=== PATIENT | female | born 1995 | race Caucasian/White ===

== ENCOUNTER 2016-11-04 15:07 | Emergency (ER) | payer MEDICAID ==
[~2016-11-04] VITALS: Wt 55.0 kg
[~2016-11-04 15:07] MED LIST: IBUP-1542 PO; PRENAT PO
[2016-11-04] MEDS ORDERED: FAMO-18 PO (16:10)
[2016-11-04] MEDS ORDERED: CETI10CA PO (16:11)
[2016-11-04] MEDS ORDERED: HC30CR25 TOP (16:11)
[2016-11-04] MEDS ORDERED: BEN25 PO (16:11)
[2016-11-04] MEDS ORDERED: PRED20TA PO (16:11)
--- NOTE | 2016-11-04 16:30 | ERD ---
ER Documentation Chief Complaint Date/Time DATE: 11/04/16 TIME: 16:27 Chief Complaint RASH SINCE YESTERDAY. NO SOB NO STRIDOR HPI Patient is a 21-year-old female who presents to the ED with rash that started 2 days ago. She states that the rash is on her face, abdomen, back, arms and legs. She denies fever or chills. She denies recent travel, change in hygiene products, change in soap, or traveling or change in foods. She states that the rash is itchy but not painful. She denies drainage. She has not taken any medication for her symptoms. She denies abdominal pain, nausea, vomiting, diarrhea. She denies shortness of breath, tongue swelling, lip swelling or difficulty breathing or swallowing or speaking. She denies chest pain or cough. No other complaints. ROS All systems reviewed and are negative except as per history of present illness. Medications Home Meds Active Scripts Hydrocortisone* Topical (Hydrocortisone* Topical) 2.5%-28.3 Gm Cream..g., 1 APPLIC TOP BID, #2 TUB Prov:FRANKLIN HANSON PA-C 11/04/16 Prednisone* (Prednisone*) 20 Mg Tab, 40 MG PO DAILY for 4 Days, TAB Prov:FRANKLIN HANSON-C 11/04/16 Cetirizine Hcl* (Zyrtec*) 10 Mg Capsule, 10 MG PO DAILY, #30 TAB.CHEW Prov:FRANKLIN HANSON PA-C 11/04/16 Diphenhydramine Hcl* (Benadryl*) 25 Mg Cap, 25 MG PO Q6, #30 CAP Prov:FRANKLIN HANSON PA-C 11/04/16 Famotidine* (Pepcid*) 20 Mg Tablet, 20 MG PO BID for 5 Days, TAB Prov:FRANKLIN HANSON-C 11/04/16 Ibuprofen* (Ibuprofen*) 600 Mg Tab, 600 MG PO Q6, #20 1 Refill Prov:JOSE IBRAHIM MD 05/04/15 Reported Medications Multivit/Min/Fol Ac/Iron/Pren* ( S*) 1 Tab Tab, 1 TAB PO DAILY, #1 TAB 05/01/15 Allergies Allergies: Coded Allergies: No Known Drug Allergies (Unverified Allergy, Unknown, 05/01/15) PMhx/Soc History of Surgery: No Anesthesia Reaction: No Hx Neurological Disorder: No Hx Respiratory Disorders: No Hx Cardiac Disorders: No Hx Psychiatric Problems: No Hx Miscellaneous Medical Probl: No Hx Alcohol Use: No Hx Substance Use: No Hx Tobacco Use: No Smoking Status: Never smoker FmHx Family History: No coronary disease, No diabetes, No other Physical Exam Vitals Vital Signs Date Time Temp Pulse Resp B/P Pulse Ox O2 Delivery O2 Flow Rate FiO2 11/04/16 16:01 98.8 81 20 131/80 98 Physical Exam GENERAL: Well-developed, well-nourished female. Appears in no acute distress. HEAD: Normocephalic, atraumatic. EYES: Pupils are equally reactive bilaterally. EOMs grossly intact. No conjunctival erythema. ENT: Moist mucous membranes. No uvula deviation. No kissing tonsils. No exudates. NECK: Supple. No lymphadenopathy or thyromegaly. No meningismus. negative kernig. negative brudinski. LUNG: Clear to auscultation bilaterally. No rhonchi, wheezing, rales or coarse breath sounds. Speaking in full sentences HEART: Regular rate and rhythm. No murmurs, rubs or gallops. ABDOMEN: No scars, ecchymosis noted. S NEUROLOGIC: Alert and oriented. Moving all four extremities. 5/5 strength in all extremities. Normal speech. Steady gait. SKIN: Normal color. Warm and dry. Erythematous wheals scattered on abdomen, back, face. No tongue swelling, lip swelling, no stridor. No wheezing. No drainage. No warmth. No streaking. Capillary refill < 2 seconds Procedures/MDM ER COURSE: I kept the patient and/or family informed of laboratory and diagnostic imaging results throughout the emergency room course. MEDICAL DECISION MAKING: This is a 21-year-old female who presents with rash 2 days. Vital signs were reviewed. Patient is afebrile. Patient is not hypoxic. Patient is not toxic or ill-appearing. Vitals are stable. Temperature 98.8, pulse 81 with an O2 sat of 98. Patient likely has rash of unknown etiology, likely urticaria. Low suspicion for necrotizing fasciitis, SJS, toxic epidermal necrolysis, Kawasaki, erythema multiforme, gangrene, scarlet fever, meningococcemia, sepsis, anaphylaxis, sepsis, deep space infection, or foreign body. DISCHARGE: At this time, patient is stable for discharge and outpatient management with no new complaints during the ER course. Patient was sent home with prednisone, Zyrtec for day, Benadryl at night, hydrocortisone cream for itching and Pepcid. A note for work was also given to patient.. Patient will be discharged home with instructions to recheck for new or worsening symptoms such as fever, nausea , weakness, LOC and to follow up with primary care in the next 1-2 days. Patient was advised to return to the ER for any new or worsening symptoms. Plan was discussed and patient and/or family understands and agrees. Home instructions were given. Departure Diagnosis: Primary Impression: Rash Condition: Stable Patient Instructions: Self-Care for Skin Rashes, When Your Child Has Hives ( Urticaria) or Angioedema Additional Instructions: Llame al doctor MAANA y demetrice pennie MIGUEL PARA DENTRO DE 1-2 JOINER.Dgale a la secretaria que nosotros le instruimos hacer esta miguel.Avise o llame si negro condicin se empeora antes de la miguel. Regresa aqui si peor o no mejor. FRANKLIN HANSON PA-C Nov 04, 2016 16:30
== END 2016-11-04 16:12 | disposition home or self-care (01) ==
LOC: E/R 15:07
DX: R21 Rash and other nonspecific skin eruption (principal)
CPT/HCPCS: 99283

== ENCOUNTER 2016-11-11 20:19 | Day surgery (SDC) | payer MEDICAID ==
[~2016-11-11] VITALS: Ht 162.6 cm; Wt 57.5 kg
[~2016-11-11 20:19] MED LIST changes: +BEN25 PO; +CETI10CA PO; +FAMO-18 PO; +HC30CR25 TOP; +PRED20TA PO
[2016-11-11 20:38] VITALS: Ht 162.6 cm; Wt 57.5 kg
--- NOTE | 2016-11-11 21:42 | ERD ---
ER Documentation Chief Complaint Date/Time DATE: 11/11/16 TIME: 21:40 Chief Complaint lower abd pain and n/v x 3 days HPI 21-year-old female presents here in emergency department for complaints of lower abdominal pain nausea and vomiting for 3 days. Patient describes the pain as sharp pain, 6/10 scale, accompanied with nausea vomiting, does not have any blood in the stool or black stool. Patient does not have any blood in the vomit. Patient does not have any fever or chills. Patient denies any diarrhea or constipation. Patient did not take any medications to help with symptoms ROS All systems reviewed and are negative except as per history of present illness. Medications Home Meds Active Scripts Hydrocortisone* Topical (Hydrocortisone* Topical) 2.5%-28.3 Gm Cream..g., 1 APPLIC TOP BID, #2 TUB Prov:FRANKLIN HANSON PA-C 11/04/16 Prednisone* (Prednisone*) 20 Mg Tab, 40 MG PO DAILY for 4 Days, TAB Prov:FRANKLIN HANSON PA-C 11/04/16 Cetirizine Hcl* (Zyrtec*) 10 Mg Capsule, 10 MG PO DAILY, #30 TAB.CHEW Prov:FRANKLIN HANSON PA-C 11/04/16 Diphenhydramine Hcl* (Benadryl*) 25 Mg Cap, 25 MG PO Q6, #30 CAP Prov:FRANKLIN HANSON PA-C 11/04/16 Famotidine* (Pepcid*) 20 Mg Tablet, 20 MG PO BID for 5 Days, TAB Prov:FRANKLIN HANSON PA-C 11/04/16 Ibuprofen* (Ibuprofen*) 600 Mg Tab, 600 MG PO Q6, #20 1 Refill Prov:JOSE IBRAHIM MD 05/04/15 Reported Medications Multivit/Min/Fol Ac/Iron/Pren* ( S*) 1 Tab Tab, 1 TAB PO DAILY, #1 TAB 05/01/15 Allergies Allergies: Coded Allergies: No Known Drug Allergies (Unverified Allergy, Unknown, 05/01/15) PMhx/Soc Medical and Surgical Hx: pt denies Medical Hx, pt denies Surgical Hx History of Surgery: No Anesthesia Reaction: No Hx Neurological Disorder: No Hx Respiratory Disorders: No Hx Cardiac Disorders: No Hx Psychiatric Problems: No Hx Miscellaneous Medical Probl: No Hx Alcohol Use: No Hx Substance Use: No Hx Tobacco Use: No Smoking Status: Never smoker FmHx Family History: No coronary disease, No diabetes, No other Physical Exam Vitals Vital Signs Date Time Temp Pulse Resp B/P Pulse Ox O2 Delivery O2 Flow Rate FiO2 11/12/16 02:00 81 114/68 100 Room Air 11/12/16 01:30 72 127/79 100 Room Air 11/12/16 01:12 73 116/61 100 Room Air 11/12/16 00:01 86 137/107 100 Room Air 11/11/16 23:52 76 130/80 100 Room Air 11/11/16 20:38 98.3 89 20 117/84 99 Physical Exam GENERAL: The patient is well developed and appropriate for usual state of health, in no apparent distress. CHEST: Clear to auscultation bilaterally. There are no rales, wheezes or rhonchi. HEART: Regular rate and rhythm. No murmurs, clicks, rubs or gallops. No S3 or S4. ABDOMEN: Soft, nontender and nondistended. Good bowel sounds. No rebound or guarding. No gross peritonitis. No gross organomegaly or masses. No Holland sign or McBurney point tenderness. BACK: No midline or flank tenderness. EXTREMITIES: Equal pulses bilaterally. There is no peripheral clubbing, cyanosis or edema. No focal swelling or erythema. Full range of motion. Grossly neurovascularly intact. NEURO: Alert and oriented. Cranial nerves 2-12 intact. Motor strength in all 4 extremities with 5/5 strength. Sensation grossly intact. Normal speech and gait. SKIN: There is no apparent rash or petechia. The skin is warm and dry. HEMATOLOGIC AND LYMPHATIC: There is no evidence of excessive bruising or lymphedema. No gross cervical, axillary, or inguinal lymphadenopathy. Result Diagram: 11/11/16214411/11/162144 Results 24 hrs Laboratory Tests Test 11/11/16 21:40 11/11/16 21:45 Urine Color LT. YELLOW Urine Clarity CLEAR Urine pH 5.5 Urine Specific [place] >=1.030 Urine Ketones TRACE Urine Nitrite NEGATIVE Urine Bilirubin NEGATIVE Urine Urobilinogen 0.2 E.U./dL Urine Leukocyte Esterase NEGATIVE Urine Microscopic RBC 0-2/HPF Urine Microscopic WBC 0-2/HPF Urine Squamous Epithelial Cells FEW Urine Bacteria FEW Urine Hemoglobin TRACE Urine Glucose NEGATIVE% Urine Total Protein NEGATIVE White Blood Count 13.910^3/ul Red Blood Count 4.5210^6/ul Hemoglobin 10.5g/dl Hematocrit 34.2% Mean Corpuscular Volume 75.7fl Mean Corpuscular Hemoglobin 23.2pg Mean Corpuscular Hemoglobin Concent 30.7g/dl Red Cell Distribution Width 15.5% Platelet Count 51562^3/UL Mean Platelet Volume 10.0fl Neutrophils % 80.1% Lymphocytes % 13.0% Monocytes % 5.1% Eosinophils % 1.1% Basophils % 0.3% Nucleated Red Blood Cells % 0.0/100WBC Neutrophils # 11.110^3/ul Lymphocytes # 1.810^3/ul Monocytes # 0.710^3/ul Eosinophils # 0.210^3/ul Basophils # 0.010^3/ul Nucleated Red Blood Cells # 0.010^3/ul Sodium Level 138mmol/L Potassium Level 3.9mmol/L Chloride Level 98mmol/L Carbon Dioxide Level 26mmol/L Anion Gap 18 Blood Urea Nitrogen 13mg/dl Creatinine 0.59mg/dl Glucose Level 103mg/dl Calcium Level 9.5mg/dl Total Bilirubin 0.1mg/dl Direct Bilirubin 0.00mg/dl Indirect Bilirubin 0.1mg/dl Aspartate Amino Transf (AST/SGOT) 25IU/L Alanine Aminotransferase (ALT/SGPT) 32IU/L Alkaline Phosphatase 77IU/L Total Protein 7.7g/dl Albumin 4.7g/dl Globulin 3.00g/dl Albumin/Globulin Ratio 1.56 Lipase 108U/L Current Medications Medications (Trade) Dose Ordered Sig/Petar Route PRN Reason Start Time Stop Time Status Last Admin Dose Admin Sodium Chloride 1,000 ml @ 1,000 mls/hr Q1H STAT IV 11/12/16 00:32 11/12/16 01:31 DC 11/12/16 02:01 Piperacillin Sod/ Tazobactam Sod (Zosyn 3.375gm/ 100 ml (Pmx)) 100 ml @ 200 mls/hr ONCE STAT IVPB 11/12/16 00:32 11/12/16 01:01 DC 11/12/16 02:01 Morphine Sulfate (morphine) 4 mg ONCE STAT IV 11/12/16 01:12 11/12/16 01:13 DC 11/12/16 02:01 Ondansetron HCl 4 mg 4 mg ONCE STAT IV 11/12/16 01:12 11/12/16 01:13 DC 11/12/16 02:01 Sodium Chloride (NS) 1,000 ml @ 125 mls/hr Q8H IV 11/12/16 01:48 11/12/16 08:31 DC 11/12/16 03:51 IV Flush (NS 3 ml) 3 ml PER PROTOCOL IV 11/12/16 02:00 11/12/16 08:31 DC Ondansetron HCl (Zofran Tab) 4 mg Q6H PRN PO NAUSEA AND/OR VOMITING 11/12/16 02:00 11/12/16 08:31 DC Ondansetron HCl (Zofran Inj) 4 mg Q6H PRN IV NAUSEA AND/OR VOMITING 11/12/16 02:00 11/12/16 08:31 DC 11/12/16 03:51 Metoclopramide HCl (Reglan) 10 mg Q6H PRN IV NAUSEA AND/OR VOMITING 11/12/16 02:00 11/12/16 08:31 DC Acetaminophen (Tylenol Tab) 650 mg Q6H PRN PO PAIN LEVEL 1-3 OR FEVER 11/12/16 02:00 11/12/16 08:31 DC Oxycodone/ Acetaminophen (Percocet (5/ 325)) 1 tab Q6H PRN PO MODERATE PAIN LEVEL 4-6 11/12/16 02:00 11/12/16 08:31 DC Morphine Sulfate (morphine) 2 mg Q4H PRN IV SEVERE PAIN LEVEL 7-10 11/12/16 02:00 11/12/16 08:31 DC 11/12/16 03:51 PROCEDURE: CT Abdomen and Pelvis without contrast. CLINICAL INDICATION: Lower abdominal pain. TECHNIQUE: A CT scan of the abdomen and pelvis was performed without intravenous contrast. Coronal and sagittal reformatted images were generated. Images were reviewed on a high-resolution PACS workstation. CTDIvol: 6.89 mGy. DLP: 321.27 mGy-cm. One or more of the following dose reduction techniques were used: - Automated exposure control. - Adjustment of the mA and/or kV according to patient size. - Use of iterative reconstruction technique. COMPARISON: None. FINDINGS: The lung bases are clear. Evaluation of the abdominal and pelvic viscera is limited by the lack of oral and intravenous contrast. The liver is unremarkable. The gallbladder is normal in appearance. The common bile duct is not dilated. The spleen is not enlarged. No pancreatic lesion is identified and there is no pancreatic ductal dilatation. The adrenal glands are unremarkable. The kidneys are normal in size. There is no perinephric fat stranding. No hydronephrosis is seen. No urinary stone is identified. The small and large bowel are normal in caliber. There is no bowel wall thickening. The appendix is dilated up to 9 mm in diameter and there are periappendiceal inflammatory changes, consistent with appendicitis. No associated periappendiceal fluid collection or pneumoperitoneum is identified. The appendix lies in the right abdominopelvic region, inferior to the cecum and lateral to the right psoas muscle. The urinary bladder is unremarkable. The pelvic organs are within normal limits. No lymphadenopathy is identified. There is no ascites. There are no arterial calcifications. No suspicious osseous lesion is idenitified. IMPRESSION: 1. Appendicitis. No pneumoperitoneum or abscess is identified. The appendix lies in the right abdominopelvic region, inferior to the cecum and lateral to the right psoas muscle. RPTAT: HTAR .Laith Lee MD, Date Time Electronically viewed and signed by .Laith Lee MD, on 11/11/2016 22:40 .R/ Procedures/MDM Medical Decision Making: Patient's right lower quadrant abdominal pain most likely consistent with acute appendicitis as seen in the CT scan abdomen and pelvis, no perforation noted at this time, patient is stable at this time, I discussed this case with my attending physician, Dr. Meyer, will facilitate patient's admission to the hospital, possible surgical evaluation. Departure Diagnosis: Primary Impression: Appendicitis Appendicitis type: acute appendicitis Acute appendicitis type: unspecified acute appendicitis type Qualified Code: K35.80 - Acute appendicitis, unspecified acute appendicitis type Condition: Stable CUISIA,NETTE LEONG T. EXPEDITER Nov 11, 2016 21:42
[2016-11-11 22:02] LABS: ADD SCAN DIFF NO
[2016-11-11 22:04] LABS: BASOPHILS % 0.3 % (0.0-2.0); EOSINOPHILS # 0.2 10^3/ul (0.0-0.5); EOSINOPHILS % 1.1 % (0.0-7.0); HEMATOCRIT 34.2 % (37.0-47.0); HEMOGLOBIN 10.5 g/dl (12.0-16.0); LYMPHOCYTES # 1.8 10^3/ul (0.8-2.9); MEAN CORPUSCULAR HEMOGLOBIN 23.2 pg (29.0-33.0); MEAN CORPUSCULAR HGB CONC 30.7 g/dl (32.0-37.0); MEAN CORPUSCULAR VOLUME 75.7 fl (72.0-104.0); MONOCYTE # 0.7 10^3/ul (0.3-0.9); MONOCYTES % 5.1 % (0.0-13.0); NEUTROPHIL # 11.1 10^3/ul (1.6-7.5); NEUTROPHILS % 80.1 % (30.0-74.0); PLATELET COUNT 361 10^3/UL (140-415); RED BLOOD COUNT 4.52 10^6/ul (4.20-5.40); RED CELL DISTRIBUTION WIDTH 15.5 % (11.5-14.5); WHITE BLOOD COUNT 13.9 10^3/ul (4.8-10.8)
[2016-11-11 22:14] LABS: ALBUMIN 4.7 g/dl (3.3-4.9)
[2016-11-11 22:15] LABS: POTASSIUM 3.9 mmol/L (3.5-5.1)
[2016-11-11 22:17] LABS: ALBUMIN/GLOBULIN RATIO 1.56; BILIRUBIN,INDIRECT 0.1 mg/dl (0-1.1); BILIRUBIN,TOTAL 0.1 mg/dl (0.2-1.3); CREATININE 0.59 mg/dl (0.44-1.00); TOTAL PROTEIN 7.7 g/dl (6.1-8.1)
[2016-11-11 22:18] LABS: CALCIUM 9.5 mg/dl (8.4-10.2)
[2016-11-11 22:33] LABS: ADD UMIC YES; URINE BILIRUBIN (Dip) NEGATIVE (NEGATIVE); URINE BLOOD (Dip) TRACE (NEGATIVE); URINE COLOR LT. YELLOW (YELLOW); URINE GLUCOSE (Dip) NEGATIVE (NEGATIVE); URINE KETONES (Dip) TRACE (NEGATIVE); URINE LEUKOCYTE ESTERASE (Dip) NEGATIVE (NEGATIVE); URINE NITRITE (Dip) NEGATIVE (NEGATIVE); URINE TOTAL PROTEIN (Dip) NEGATIVE (NEGATIVE); URINE UROBILINOGEN (Dip) 0.2 E.U./dL (0.1-1.0)
--- NOTE | 2016-11-11 22:40 | RADRPT ---
PROCEDURE: CT Abdomen and Pelvis without contrast. CLINICAL INDICATION: Lower abdominal pain. TECHNIQUE: A CT scan of the abdomen and pelvis was performed without intravenous contrast. Lyman l and sagittal reformatted images were generated. Images were reviewed on a high-resolution PACS wor kstation. CTDIvol: 6.89 mGy. DLP: 321.27 mGy-cm. One or more of the following dose reduction techniques were used: - Automated exposure control. - Adjustment of the mA and/or kV according to patient size. - Use of iterative reconstruction technique. COMPARISON: None. FINDINGS: The lung bases are clear. Evaluation of the abdominal and pelvic viscera is limited by the lack of oral and intravenous contra st. The liver is unremarkable. The gallbladder is normal in appearance. The common bile duct is not dila mackenzie. The spleen is not enlarged. No pancreatic lesion is identified and there is no pancreatic ducta l dilatation. The adrenal glands are unremarkable. The kidneys are normal in size. There is no perinephric fat stranding. No hydronephrosis is seen. No urinary stone is identified. The small and large bowel are normal in caliber. There is no bowel wall thickening. The appendix is dilated up to 9 mm in diameter and there are periappendiceal inflammatory changes, consistent with a ppendicitis. No associated periappendiceal fluid collection or pneumoperitoneum is identified. The a ppendix lies in the right abdominopelvic region, inferior to the cecum and lateral to the right psoa s muscle. The urinary bladder is unremarkable. The pelvic organs are within normal limits. No lymphadenopathy is identified. There is no ascites. There are no arterial calcifications. No suspicious osseous lesion is idenitified. IMPRESSION: 1. Appendicitis. No pneumoperitoneum or abscess is identified. The appendix lies in the right ab dominopelvic region, inferior to the cecum and lateral to the right psoas muscle. RPTAT: HTAR .Laith Lee MD, MD Date Time Electronically viewed and signed by .Laith Lee MD, MD on 11/11/2016 22:40 .R/
[2016-11-11 23:02] LABS: BACTERIA,URINE FEW; SQUAMOUS EPITHELIAL CELL,UR FEW; URINE RBCS 0-2 /HPF (0)
[2016-11-12] VITALS (25 sets, daily range): BP systolic 91–122; BP diastolic 48–71; PULSE 66–97; RESP 15–32
[2016-11-12] MEDS ORDERED: SOD CHLORIDE 0.9% 1,000 ML IV STA (00:32)
[2016-11-12] MEDS ORDERED: PIPER-TAZO 3.375 GM IV (PMX) 100 ML IVPB STA (00:32)
[2016-11-12] MEDS ORDERED: ONDANSETRON 4 MG INJ IV STA (01:12)
[2016-11-12] MEDS ORDERED: morphine 4 MG/ML VIAL IV STA (01:12)
[2016-11-12] MEDS ORDERED: SOD CHLORIDE 0.9% 1,000 ML IV SCH (01:48)
--- NOTE | 2016-11-12 01:48 | HP ---
Date/Time of Note Date/Time of Note DATE: 11/12/16 TIME: 01:47 Assessment/Plan VTE Prophylaxis VTE Prophylaxis Intervention: ambulation Lines/Catheters IV Catheter Type (from Nrsg): Saline Lock Assessment/Plan Assessment/Plan 1) Acute Appendicitis - Admit to Med Surg - NPO - IV Hydration - Pain and nausea control - General Surgeon, Dr. Soto, already consulted through ED - Plan for [facility] Appy about 0500 today. HPI/ROS Admit Date/Time Admit Date/Time 11/12/14 0112 Hx of Present Illness Chief Complaint lower abd pain and n/v x 3 days HPI 21-year-old female who presented to the emergency department with complaints of lower abdominal pain nausea and vomiting for 3 days. Patient has already been treated with IV pain medication and anti-nausea medication and feels much better though some pain and minimal nausea remain. She denies fever but has had shaking chills. No diarrhea. No chest pain, palpitations, cough, wheeze or SOB. No current rash. No history of previous surgeries ROS General: Admits: Chills, Poor Appetite Denies: Fever, Generalized Body Aches Eyes: Admits: Denies: Blurry Vision, Double Vision HENT: Admits: Denies: Ear Pain/Pressure, Runny/Stuffy Nose, Sore Throat Cardiovascular: Admits: Leg Swelling Denies: Chest Pain, Palpitations Pulmonary: Admits: Denies: Cough, Wheeze, Shortness of Breath Gastrointestinal: Admits: Abdominal Pain, Nausea Denies: Vomiting, Diarrhea, Blood in Stool, Black- Colored Stool Urogenital: Admits: Denies: Burning with Urination, Urinary Frequency, Blood in Urine Musculoskeletal: Admits: Denies: Joint Pain, Joint Swelling, Muscle Pain Neurological: Admits: Denies: Headache, Dizziness, Numbness, Tingling, Shooting Pains Integumentary: Admits: Swelling/Puffiness in both legs Denies: Rash, Itch PMH/Family/Social Past Medical History Medical History: no pertinent history Past Surgical History Past Surgical Hx: no surgical history Family History Significant Family History: no pertinent family hx Social History Has a 1 year old daughter at home, not Alcohol Use: none Smoking Status: Never smoker Drug Use: none Exam/Review of Systems Vital Signs Vitals Vital Signs Date Time Temp Pulse Resp B/P Pulse Ox O2 Delivery O2 Flow Rate FiO2 11/11/16 20:38 98.3 89 20 117/84 99 Exam Exam General: WD/WN 23 year old female, alert and oriented, in no acute distress Eyes: Sclera White, EOMI HENT: Normocephalic/Atraumatic, External Ears/Nose Normal, Moist Mucus Membranes Neck: Supple, Trachea Midline Cardiovascular: Normal Rate, Normal Rhythm, Normal S1 and S2, No Murmur, No Extra Sounds. Radial pulses +2/4 and regular. Bilateral pedal edema/puffiness, non-pitting. Pulmonary: Clear to Auscultation Bilaterally, Normal Respiratory Effort, No Rales, Rhonchi or Wheezes Gastrointestinal: Normoactive Bowel Sounds Normoactive, Soft, minimal exam done so as not to aggravate patient's pain at this time Urogenital: Deferred Musculoskeletal: Normal Muscle Bulk and Tone Neurological: CN II - XII Grossly Intact, Non-Focal, Speech Normal Integumentary: Normal Moisture and Temperature, Good Turgor, No Jaundice, No Rash Lymphatic: No Cervical Lymphadenopathy Psychiatric: Appropriate Mood and Affect, Good Eye Contact Labs Result Diagram: 11/11/16214411/11/162144 Procedures Procedures Laboratory Tests Test 11/11/16 21:40 11/11/16 21:45 Urine Color LT. YELLOW Urine Clarity CLEAR Urine pH 5.5 Urine Specific [place] >=1.030 Urine Ketones TRACE Urine Nitrite NEGATIVE Urine Bilirubin NEGATIVE Urine Urobilinogen 0.2 E.U./dL Urine Leukocyte Esterase NEGATIVE Urine Microscopic RBC 0-2/HPF Urine Microscopic WBC 0-2/HPF Urine Squamous Epithelial Cells FEW Urine Bacteria FEW Urine Hemoglobin TRACE Urine Glucose NEGATIVE% Urine Total Protein NEGATIVE White Blood Count 13.910^3/ul Red Blood Count 4.5210^6/ul Hemoglobin 10.5g/dl Hematocrit 34.2% Mean Corpuscular Volume 75.7fl Mean Corpuscular Hemoglobin 23.2pg Mean Corpuscular Hemoglobin Concent 30.7g/dl Red Cell Distribution Width 15.5% Platelet Count 70688^3/UL Mean Platelet Volume 10.0fl Neutrophils % 80.1% Lymphocytes % 13.0% Monocytes % 5.1% Eosinophils % 1.1% Basophils % 0.3% Nucleated Red Blood Cells % 0.0/100WBC Neutrophils # 11.110^3/ul Lymphocytes # 1.810^3/ul Monocytes # 0.710^3/ul Eosinophils # 0.210^3/ul Basophils # 0.010^3/ul Nucleated Red Blood Cells # 0.010^3/ul Sodium Level 138mmol/L Potassium Level 3.9mmol/L Chloride Level 98mmol/L Carbon Dioxide Level 26mmol/L Anion Gap 18 Blood Urea Nitrogen 13mg/dl Creatinine 0.59mg/dl Glucose Level 103mg/dl Calcium Level 9.5mg/dl Total Bilirubin 0.1mg/dl Direct Bilirubin 0.00mg/dl Indirect Bilirubin 0.1mg/dl Aspartate Amino Transf (AST/SGOT) 25IU/L Alanine Aminotransferase (ALT/SGPT) 32IU/L Alkaline Phosphatase 77IU/L Total Protein 7.7g/dl Albumin 4.7g/dl Globulin 3.00g/dl Albumin/Globulin Ratio 1.56 Lipase 108U/L RADIOLOGY: PROCEDURE: CT Abdomen and Pelvis without contrast. CLINICAL INDICATION: Lower abdominal pain. COMPARISON: None. FINDINGS: The lung bases are clear. Evaluation of the abdominal and pelvic viscera is limited by the lack of oral and intravenous contrast. The liver is unremarkable. The gallbladder is normal in appearance. The common bile duct is not dilated. The spleen is not enlarged. No pancreatic lesion is identified and there is no pancreatic ductal dilatation. The adrenal glands are unremarkable. The kidneys are normal in size. There is no perinephric fat stranding. No hydronephrosis is seen. No urinary stone is identified. The small and large bowel are normal in caliber. There is no bowel wall thickening. The appendix is dilated up to 9 mm in diameter and there are periappendiceal inflammatory changes, consistent with appendicitis. No associated periappendiceal fluid collection or pneumoperitoneum is identified. The appendix lies in the right abdominopelvic region, inferior to the cecum and lateral to the right psoas muscle. The urinary bladder is unremarkable. The pelvic organs are within normal limits. No lymphadenopathy is identified. There is no ascites. There are no arterial calcifications. No suspicious osseous lesion is identified. IMPRESSION: 1. Appendicitis. No pneumoperitoneum or abscess is identified. The appendix lies in the right abdominopelvic region, inferior to the cecum and lateral to the right psoas muscle. LEROY VINES DO Nov 12, 2016 01:48 Pulmonary: Admits: Denies: Cough, Wheeze, Shortness of Breath Gastrointestinal: Admits: Abdominal Pain, Nausea Denies: Vomiting, Diarrhea, Blood in Stool, Black- Colored Stool Urogenital: Admits: Denies: Burning with Urination, Urinary Frequency, Blood in Urine Musculoskeletal: Admits: Denies: Joint Pain, Joint Swelling, Muscle Pain Neurological: Admits: Denies: Headache, Dizziness, Numbness, Tingling, Shooting Pains Integumentary: Admits: Swelling/Puffiness in both legs Denies: Rash, Itch PMH/Family/Social Past Medical History Medical History: no pertinent history Past Surgical History Past Surgical Hx: no surgical history Family History Significant Family History: no pertinent family hx Social History Has a 1 year old daughter at home, not Alcohol Use: none Smoking Status: Never smoker Drug Use: none Exam/Review of Systems Vital Signs Vitals Vital Signs Date Time Temp Pulse Resp B/P Pulse Ox O2 Delivery O2 Flow Rate FiO2 11/11/16 20:38 98.3 89 20 117/84 99 Exam Exam General: WD/WN 23 year old female, alert and oriented, in no acute distress Eyes: Sclera White, EOMI HENT: Normocephalic/Atraumatic, External Ears/Nose Normal, Moist Mucus Membranes Neck: Supple, Trachea Midline Cardiovascular: Normal Rate, Normal Rhythm, Normal S1 and S2, No Murmur, No Extra Sounds. Radial pulses +2/4 and regular. Bilateral pedal edema/puffiness, non-pitting. Pulmonary: Clear to Auscultation Bilaterally, Normal Respiratory Effort, No Rales, Rhonchi or Wheezes Gastrointestinal: Normoactive Bowel Sounds Normoactive, Soft, minimal exam done so as not to aggravate patient's pain at this time Urogenital: Deferred Musculoskeletal: Normal Muscle Bulk and Tone Neurological: CN II - XII Grossly Intact, Non-Focal, Speech Normal Integumentary: Normal Moisture and Temperature, Good Turgor, No Jaundice, No Rash Lymphatic: No Cervical Lymphadenopathy Psychiatric: Appropriate Mood and Affect, Good Eye Contact Labs Result Diagram: 11/11/16214411/11/162144 LEROY VINES DO Nov 12, 2016 01:48
[2016-11-12] MEDS ORDERED: OXYCODONE/ACETAMINOPHEN (5/325) TAB PO PRN ×3 (02:00→06:00)
[2016-11-12] MEDS ORDERED: ONDANSETRON 4 MG TAB PO PRN (02:00)
[2016-11-12] MEDS ORDERED: ACETAMINOPHEN 325 MG TAB PO PRN (02:00)
[2016-11-12] MEDS ORDERED: METOCLOPRAMIDE 10 MG INJ IV PRN ×2 (02:00→05:00)
[2016-11-12] MEDS ORDERED: ONDANSETRON 4 MG INJ IV PRN ×3 (02:00→06:00)
[2016-11-12] MEDS ORDERED: NACL 0.9% 3 ML SYG IV SCH (02:00)
[2016-11-12] MEDS ORDERED: morphine 2 MG INJ IV PRN ×2 (02:00→06:00)
[2016-11-12] MEDS ORDERED: MEPERIDINE 25 MG INJ IV PRN (05:00)
[2016-11-12] MEDS ORDERED: morphine (1 MG/ML) 10ML SYRINGE IV PRN ×2 (05:00)
[2016-11-12] MEDS ORDERED: MIDAZOLAM 1 MG/ML 2 ML INJ IV PRN (05:00)
[2016-11-12] MEDS ORDERED: LABETALOL HCL 20MG INJ IV PRN (05:00)
[2016-11-12] MEDS ORDERED: DIPHENHYDRAMINE 50 MG INJ IV PRN (05:00)
[2016-11-12] MEDS ORDERED: EPHEDrine SULFATE 50 MG/5 ML SYG IV PRN (05:00)
[2016-11-12] MEDS ORDERED: hydrALAzine 20 MG INJ IV PRN (05:00)
[2016-11-12] MEDS ORDERED: FENTAnyl 50 MCG/ML VIAL IV PRN ×2 (05:00)
[2016-11-12] MEDS ORDERED: HYDROmorphONE (0.2 MG/ML) 10ML SYG IV PRN ×2 (05:00)
[2016-11-12] MEDS ORDERED: NEOSTIGMINE 3 MG/3 ML SYRINGE ONE (05:03)
[2016-11-12] MEDS ORDERED: SUCCINYLCHOLINE CHLORIDE 100 MG/5 ML SYG IV ONE (05:03)
[2016-11-12] MEDS ORDERED: LIDOCAINE 2% (SDV) 5 ML INJ ONE (05:03)
[2016-11-12] MEDS ORDERED: PROPOFOL 20 ML ONE (05:03)
[2016-11-12] MEDS ORDERED: ROCURONIUM 50 MG INJ ONE (05:03)
[2016-11-12] MEDS ORDERED: GLYCOPYRROLATE 0.4 MG INJ ONE (05:03)
[2016-11-12] MEDS ORDERED: MEPERIDINE 100 MG INJ ONE (05:03)
--- NOTE | 2016-11-12 05:19 | CONS ---
DATE OF ADMISSION: 11/12/2016 DATE OF CONSULTATION: 11/12/2016 SURGICAL CONSULTATION REASON FOR CONSULTATION: Acute appendicitis. HISTORY OF PRESENT ILLNESS: The patient is an otherwise healthy 21-year-old female who presents to the emergency room with a 2 to 3 day history of nonspecific abdominal pain associated with nausea an d vomiting. The pain intensified in severity, then localized to the right lower quadrant. In the e mergency room, she was noted to have a tender right lower quadrant, a white count of 13,[address] c ompatible with acute appendicitis. The patient is admitted and surgical consultation was requested in that regard. PAST MEDICAL HISTORY: No previous hospitalizations or illnesses. REVIEW OF SYSTEMS: HEAD, EARS, EYES, NOSE AND THROAT: Unremarkable. PULMONARY: No history of shortness of breath, asthma or pneumonia. CARDIAC: No history of chest pain or arrhythmia. GASTROINTESTINAL: As in the HPI. EXTREMITIES: Unremarkable. OUTPATIENT MEDICATIONS: None. ALLERGIES: NONE. PHYSICAL EXAMINATION: GENERAL: The patient is alert, oriented, Bengali speaking only female, in no acute distress. HEAD, EARS, EYES, NOSE, THROAT: Within normal limits. LUNGS: Clear. HEART: Regular rhythm. ABDOMEN: Tender in the right lower quadrant with guarding but no rebound. EXTREMITIES: Unremarkable. LABORATORY DATA: Hematocrit is 34.2 with a white count of 13,900. CT compatible with acute appendi citis. PLAN: The patient will undergo laparoscopic appendectomy. I have discussed the procedure, outcomes , expectations, alternatives and risks in detail with the patient and sister who have an excellent u nderstanding of her situation and agree to the proposed plan of therapy as outlined. Dictated By: ELISSA MADDOX/FRANSISCO Conf#: [id number] DID#: [id number] CC: LEROY VINES MD;*EndCC*
[2016-11-12] MEDS ORDERED: ONDANSETRON 4 MG INJ ONE (05:25)
[2016-11-12] MEDS ORDERED: METOCLOPRAMIDE 10 MG INJ ONE (05:25)
[2016-11-12] MEDS ORDERED: BUPIVACAINE 0.25%/EPI (SDV) 30 ML INJ INJ ONE (05:51)
--- NOTE | 2016-11-12 05:55 | OPR ---
DATE OF OPERATION: 11/12/2016 PREOPERATIVE DIAGNOSIS: Acute appendicitis. PROCEDURE: Laparoscopic appendectomy. POSTOPERATIVE DIAGNOSIS: Acute appendicitis without localized peritonitis. SURGEON: Elissa Soto MD ANESTHESIA: General. ANESTHESIOLOGIST: Dr. Reich OPERATIVE REPORT: After satisfactory general anesthesia was achieved, the abdomen was prepped and d raped in the usual fashion. The abdomen was insufflated with carbon dioxide through an umbilical Ve ress needle to 15 mmHg pressure. The Veress needle was removed and the umbilical incision extended to 5 mm, through which a 5 mm trocar was placed. A 5-mm, 0-degree lens was placed. Laparoscopy travis wed an acutely inflamed appendix without localized peritonitis. Under direct visualization, a 5 mm suprapubic trocar was placed as well as a 12 mm left lower quadrant trocar. A window was made in th e mesoappendix through which a vascular linear cutter was placed across the base of the cecum, close d and fired, disconnecting the appendix from the cecum. A second firing of the vascular linear cutt er across the mesoappendix fully freed the appendix, which was placed intact into an EndoCatch, elan cristina via the 12 mm port site. Hemostasis was total and irrigant returned clear. The fascial defect was closed with #1 Vicryl with the assistance of a Edwin-Sai device. The abdomen was then jen ufflated and the trocars were removed. The fascial suture was tied down. The skin punctures were i nfiltrated with 30 mL of 0.25% Marcaine with epinephrine and closed with rey. Operative blood l oss less than 10 mL. Sponge and needle counts reported as correct x2. The patient tolerated the procedure well and without incident or complication. Dictated By: ELISSA MADDOX/NTS Conf#: [id number] DID#: [id number]
[2016-11-12] MEDS ORDERED: EPHEDrine SULFATE 50 MG/5 ML SYG ONE (07:00)
--- NOTE | 2016-11-12 16:32 | DS ---
DATE OF ADMISSION: 11/11/2016 DATE OF DISCHARGE: 11/12/2016 FINAL DIAGNOSES: 1. Acute appendicitis. Status post laparoscopic appendectomy. 2. Systemic inflammatory response syndrome secondary to appendicitis. CONSULTATIONS: Dr. Sammy Soto, General Surgery. HOSPITAL COURSE: This is a 21-year-old female with no significant past medical history who came to the emergency department with complaint of lower abdominal pain with associated nausea and vomiting that has been going on for a 3 day period. The patient denied any fevers or diarrhea. She denied any chest pain, palpitations, cough, wheeze, or shortness of breath. The patient underwent a CT scan of the abdomen and pelvis in the emergency room that showed appendicitis with no evidence of any pneumoperitoneum or abscess. The patient was also noticed to have leukocytosis. Provided the patient's history of present illness and the diagnostic findings, a clinical decision was made to admit the patient to inpatient setting to have her further evaluated. The patient was admitted to inpatient medical surgical floor. A general surgery consult was called on this patient. The patient was kept n.p.o. The patient was started on empiric antibiotics. The patient was taken to the OR, and the patient underwent a laparoscopic appendectomy with no immediate postoperative complications. Postoperatively, the patient was started on a regular consistency diet, and the patient tolerated the diet without any significant gastrointestinal symptoms. The patient was discharged by the surgeon directly from the postoperative area to home. DISCHARGE DISPOSITION AND PLAN: Patient will be discharged home today. The patient was advised to take a regular diet as tolerated. The patient was instructed to avoid heavy weightbearing greater than 25 pounds for at least 8 weeks. The patient was instructed to follow up with Dr. Soto in 1 week for incision check. She was instructed to take pain medications as needed. Pain medications and antibiotics were provided by Dr. Soto. CONDITION AT DISCHARGE: Stable. DISCHARGE MEDICATIONS: Provided by Dr. Soto. PERTINENT LABORATORY AND DIAGNOSTIC DATA: 1. CBC: WBC 13.9, hemoglobin 10.5, hematocrit 34.2, platelet count 361. 2. BMP: Sodium 138, potassium 3.9, chloride 98, carbon dioxide 26, anion gap 18 , BUN 13, creatinine 2.5, glucose 103, calcium 9.5. 3. CT scan of the abdomen and pelvis: Appendicitis. No pneumoperitoneum or abscess was identified. At this time, we would like to thank Dr. Soto for seeing the patient, doing the necessary procedures, and providing clinical recommendations. The case and management of this patient was fully discussed with Dr. Cowart. Approximately 30 minutes was spent on coordinating discharge on this patient. YADIEL COWART MD, AM/FRANSISCO Conf#: [id number] DID#: [id number] MTDD
== END 2016-11-12 08:16 | disposition home or self-care (01) ==
LOC: FTE 20:19 → SDS 11-12 04:30
PROVIDERS: ATTEND Family Medicine
DX: K35.80 Unspecified acute appendicitis (principal)
CPT/HCPCS: 36415; 44970; 74176; 80053; 81001; 81003; 83690; 85025; 88304; 96374; 96375; 96376; J0330; J2175; J2270; J2405; J2543; J2710; J2765; J7030; Z7502; Z7512; Z7610

== ENCOUNTER 2017-03-08 19:30 | Emergency (ER) | payer MEDICAID ==
[~2017-03-08] VITALS: Ht 152.4 cm; Wt 56.5 kg
[~2017-03-08 19:30] MED LIST changes: -FAMO-18 PO; +FAMO-96 PO
[2017-03-08 19:33] VITALS: Ht 152.4 cm; Wt 56.5 kg
--- NOTE | 2017-03-08 20:06 | ERD ---
ER Documentation Chief Complaint Date/Time DATE: 03/08/17 TIME: 20:05 Chief Complaint CHEST PAIN 7/10 X 2 WEEKS HPI 22-year-old female presents to emergency department for complaints of left- sided chest pain for 2 weeks now, patient describes the pain as sharp pain, 6/ 10 scale, is worse upon taking a deep breath. Patient denies any trauma and affected area. Patient carries her daughter at times. Patient denies any fever or chills. Patient denies any cough. Patient denies any dyspnea on exertion or dyspnea on lying down. Patient denies any dizziness. ROS All systems reviewed and are negative except as per history of present illness. Medications Home Meds Active Scripts Hydrocortisone* Topical (Hydrocortisone* Topical) 2.5%-28.3 Gm Cream..g., 1 APPLIC TOP BID, #2 TUB Prov:FRANKLIN HANSON PA-C 11/04/16 Prednisone* (Prednisone*) 20 Mg Tab, 40 MG PO DAILY for 4 Days, TAB Prov:FRANKLIN HANSON PA-C 11/04/16 Cetirizine Hcl* (Zyrtec*) 10 Mg Capsule, 10 MG PO DAILY, #30 TAB.CHEW Prov:FRANKLIN HANSON PA-C 11/04/16 Diphenhydramine Hcl* (Benadryl*) 25 Mg Cap, 25 MG PO Q6, #30 CAP Prov:FRANKLIN HANSON PA-C 11/04/16 Famotidine* (Pepcid*) 20 Mg Tablet, 20 MG PO BID for 5 Days, TAB Prov:FRANKLIN HANSON PA-C 11/04/16 Ibuprofen* (Ibuprofen*) 600 Mg Tab, 600 MG PO Q6, #20 1 Refill Prov:JOSE IBRAHIM MD 05/04/15 Reported Medications Multivit/Min/Fol Ac/Iron/Pren* ( S*) 1 Tab Tab, 1 TAB PO DAILY, #1 TAB 05/01/15 Allergies Allergies: Coded Allergies: No Known Drug Allergies (Unverified Allergy, Unknown, 05/01/15) PMhx/Soc Medical and Surgical Hx: pt denies Medical Hx, pt denies Surgical Hx History of Surgery: No Anesthesia Reaction: No Hx Neurological Disorder: No Hx Respiratory Disorders: No Hx Cardiac Disorders: No Hx Psychiatric Problems: No Hx Miscellaneous Medical Probl: No Hx Alcohol Use: No Hx Substance Use: No Hx Tobacco Use: No Smoking Status: Never smoker FmHx Family History: No coronary disease, No diabetes, No other Physical Exam Vitals Vital Signs Date Time Temp Pulse Resp B/P Pulse Ox O2 Delivery O2 Flow Rate FiO2 03/08/17 19:33 99.2 66 20 134/83 100 Physical Exam GENERAL: The patient is well developed and appropriate for usual state of health, in no apparent distress. CHEST: Clear to auscultation bilaterally. There are no rales, wheezes or rhonchi. Reproducible left chest tenderness. HEART: Regular rate and rhythm. No murmurs, clicks, rubs or gallops. No S3 or S4. ABDOMEN: Soft, nontender and nondistended. Good bowel sounds. No rebound or guarding. No gross peritonitis. No gross organomegaly or masses. No Holland sign or McBurney point tenderness. BACK: No midline or flank tenderness. EXTREMITIES: Equal pulses bilaterally. There is no peripheral clubbing, cyanosis or edema. No focal swelling or erythema. Full range of motion. Grossly neurovascularly intact. NEURO: Alert and oriented. Cranial nerves 2-12 intact. Motor strength in all 4 extremities with 5/5 strength. Sensation grossly intact. Normal speech and gait. SKIN: There is no apparent rash or petechia. The skin is warm and dry. HEMATOLOGIC AND LYMPHATIC: There is no evidence of excessive bruising or lymphedema. No gross cervical, axillary, or inguinal lymphadenopathy. Results 24 hrs EKG was done, read by me and is normal sinus rhythm at a rate of 62, normal axis , there is no ST changes or changes in the EKG that indicates any cardiac emergencies at this time. Patient's EKG was also reviewed by Dr. Tse. Impression: no acute findings on EKG PROCEDURE: XR Chest. CLINICAL INDICATION: Chest pain. TECHNIQUE: Single frontal chest x-ray. COMPARISON: None. FINDINGS: The cardiomediastinal silhouette is unremarkable. There is no congestive heart failure.. No focal infiltrate is seen. There is no pleural effusion. There is no pneumothorax. The osseous structures are unremarkable. IMPRESSION: 1. No active disease. RPTAT: HMVK .Gerald Angeles MD, Date Time Electronically viewed and signed by .Gerald Angeles MD, on 03/08/2017 20:43 .K/ CC: NETTE THOMASON NP Procedures/MDM Medical Decision Making: Patient chest pain most likely consistent with costochondritis, possible chest wall strain. There is low suspicion for cardiopulmonary emergencies at this time. Patient has low risk factors. EKG is normal, there is no changes in the EKG that indicates cardiac emergencies. Chest X-ray does not show cardiopulmonary emergencies at this time. There is low suspicion for aortic aneurysm, myocardial infarction, pneumothorax, pleural effusion, pulmonary embolism, or any other cardiopulmonary emergencies at this time. Patient was given for ibuprofen, advised to follow-up with primary care doctor in 2-3 days for reevaluation of symptoms, advised to see a maintenance technician specialist if symptoms continues to persist. Patient was advised to return to emergency department for any worsening symptoms. Dispostion: Home. Stable Departure Diagnosis: Primary Impression: Chest wall pain Condition: Stable Patient Instructions: Chest Wall Pain, Costochondritis Additional Instructions: Patient was given for ibuprofen, advised to follow-up with primary care doctor in 2-3 days for reevaluation of symptoms, advised to see a maintenance technician specialist if symptoms continues to persist. Patient was advised to return to emergency department for any worsening symptoms. NETTE THOMASON NP Mar 08, 2017 20:06
--- NOTE | 2017-03-08 20:43 | RADRPT ---
PROCEDURE: XR Chest. CLINICAL INDICATION: Chest pain. TECHNIQUE: Single frontal chest x-ray. COMPARISON: None. FINDINGS: The cardiomediastinal silhouette is unremarkable. There is no congestive heart failure.. No focal i nfiltrate is seen. There is no pleural effusion. There is no pneumothorax. The osseous structures are unremarkable. IMPRESSION: 1. No active disease. RPTAT: HMVK .Gerald Angeles MD, MD Date Time Electronically viewed and signed by .Gerald Angeles MD, MD on 03/08/2017 20:43 .K/
[2017-03-08] MEDS ORDERED: IBUP400T22 PO (21:23)
[2017-03-08 21:40] VITALS: BP 136/73; PULSE 59; RESP 20; TEMP 99.2
== END 2017-03-08 21:40 | disposition home or self-care (01) ==
LOC: FTE 19:30
DX: R07.89 Other chest pain (principal)
CPT/HCPCS: 71010; 93005; Z7502

== ENCOUNTER 2017-11-01 23:39 | Emergency (ER) | END 2017-11-02 04:40 | disposition home or self-care (01) ==

== ENCOUNTER 2017-11-10 21:23 | Emergency (ER) | END 2017-11-11 02:15 | disposition home or self-care (01) ==

== ENCOUNTER 2018-07-23 22:16 | Emergency (ER) | END 2018-07-24 01:30 | disposition home or self-care (01) ==

== ENCOUNTER 2018-07-30 00:52 | Emergency (ER) | END 2018-07-30 03:00 | disposition home or self-care (01) ==